=== PATIENT | female | born 1970 | race American Indian/Alaskan Native ===

== ENCOUNTER 2018-02-16 22:49 | Emergency (ER) | payer MEDICAID ==
[~2018-02-16 22:49] MED LIST: ADRENALIN ONE; SODIUM BICARBONATE IV ONE
--- NOTE | 2018-02-16 23:27 | Emergency Department Report ---
HPI - General Chief Complaint: Cardiac Arrest/CPR Time Seen by Provider: 02/16/18 22:49 - HPI HPI: The patient is a 47-year-old female who presented via EMS in cardiac arrest. Per EMS patient was found approximately 30 minutes prior to arrival on scene unresponsive and with asystole heart rhythm. EMS reports initiating CPR immediately and placing a Combitube for airway. ED Past Medical Hx - Past Medical History Previous Medical History?: Yes Hx Hypertension: Yes Hx Congestive Heart Failure: Yes Hx Diabetes: Yes Hx COPD: Yes Hx HIV: No - Surgical History Past Surgical History?: Yes Additional Surgical History: cholecystectomy, tubal ligation - Social History Smoking Status: Former Smoker - Medications Home Medications: Home Medications Medication Instructions Recorded Confirmed Last Taken Type Albuterol Sulfate [Proventil Hfa] 6.7 gm IH PRN 09/28/17 09/28/17 09/27/17 History Aspirin [Lo-Dose Aspirin EC] 81 mg PO DAILY 09/28/17 09/28/17 09/27/17 History AtorvaSTATin [Lipitor] 40 mg PO QHS 09/28/17 09/28/17 09/27/17 History Carvedilol 12.5 mg PO BID 09/28/17 09/28/17 09/27/17 History Docusate Sodium [Colace CAP] 100 mg PO DAILY 09/28/17 09/28/17 Unknown History Duloxetine HCl [DULoxetine] 30 mg PO DAILY 09/28/17 09/28/17 09/27/17 History Furosemide [Lasix TAB] 40 mg PO QDAY 09/28/17 09/28/17 09/27/17 History Hydrochlorothiazide [HCTZ] 25 mg PO QDAY 09/28/17 09/28/17 09/27/17 History Insulin Lispro [Humalog 100 10 units SQ AC 09/28/17 09/28/17 09/27/17 History UNITS/ML Kwikpen] 09/27/17 Montelukast [Singulair] 10 mg PO QPM 09/28/17 09/28/17 09/27/17 History amLODIPine [Norvasc] 10 mg PO QDAY #30 tablet 09/30/17 Unknown Rx hydrALAZINE [Apresoline TAB] 25 mg PO Q8HR #90 tab 09/30/17 Unknown Rx oxyCODONE /ACETAMINOPHEN [Percocet 1 tab PO Q6H PRN tablet 09/30/17 Unknown Rx 5/325 mg] Diltiazem [CarDIZEM] 30 mg PO Q6HR #120 tablet 11/12/17 Unknown Rx ED Review of Systems ROS: Stated complaint: CARDIAC ARREST Other details as noted in HPI Comment: Unobtainable due to pts medical conditions (unresponsive) Physical Exam - Physical Exam Physical Exam: Physical Exam: General: well-nourished, well-developed, morbidly obese Head: Normocephalic, atraumatic Eyes: Pupils were fixed and dilated, unresponsive to light ENT: combutube present in mouth Neck: no appreciable carotid bruit or thrill Respiratory: Breath sounds equal with bagging/assisted ventilations Cardio: No distal pulses, extremities cold to touch Abdomen: soft abdomen, no obvious distention, no epigastric breath sounds with assisted ventilation Musc: No pitting edema Skin: No rash Neuro: Patient unresponsive to verbal or painful stimuli, no abnormal tonicity or posturing ED Medical Decision Making - Medical Decision Making The patient was seen and examined by myself. The patient is placed on a rn cardiac and continuous pulse ox. On initial evaluation, the patient was found to be unresponsive in cardiac arrest. Initial monitor rhythm reveals asystole/PEA. IV access is established and the patient is given epinephrine and sodium bicarbonate. Despite multiple rounds of CPR and ACLS medications given to the patient, the patient remained without pulse and in cardiac arrest. As the patient has wide and fixed dilated pupils bilaterally, and has been in cardiac arrest for greater than 30 minutes, the patient has very poor chance of return of spontaneous circulation. The resuscitation team was queried regarding additional resuscitation efforts. No further ideas were volunteered. The resuscitation team agreed that best efforts to resuscitate the patient have been made. The resuscitation code is discontinued and the patient is pronounced . Family members are informed of the patient's passing. Critical care attestation.: If time is entered above; I have spent that time in minutes in the direct care of this critically ill patient, excluding procedure time. ED Disposition Clinical Impression: Cardiac arrest Disposition: [id number]-20 Is pt being admited?: No Does the pt Need Aspirin: No Condition: Critical Referrals: PRIMARY CARE, [Primary Care Provider] - 3-5 Days Time of Disposition: 22:59
== END 2018-02-17 03:16 ==
LOC: ED 22:49
DX: I46.9 Cardiac arrest, cause unspecified (principal); I11.0 Hypertensive heart disease with heart failure; E11.9 Type 2 diabetes mellitus without complications; J44.9 Chronic obstructive pulmonary disease, unspecified; Z90.49 Acquired absence of other specified parts of digestive tract; Z98.51 Tubal ligation status; Z87.891 Personal history of nicotine dependence; Z79.82 Long term (current) use of aspirin; Z79.4 Long term (current) use of insulin
CPT/HCPCS: 31500; 92950; 99285; J0171